=== PATIENT | female | born 1965 | race Caucasian/White ===

== ENCOUNTER 2019-04-06 17:08 | Inpatient (IN) ==
[2019-04-06 17:41] LABS: URINE SOURCE CLEAN CATCH
[2019-04-06 17:46] LABS: BILIRUBIN URINE NEGATIVE (NEGATIVE); BLOOD URINE TRACE (NEGATIVE); COLOR YELLOW; GLUCOSE URINE NEGATIVE (NEGATIVE); KETONE URINE 100 mg/dL (NEGATIVE); LEUKOCYTES URINE SMALL (NEGATIVE); NITRITE URINE NEGATIVE (NEGATIVE); PROTEIN URINE TRACE mg/dL (NEGATIVE); SP GRAVITY URINE 1.022; TURBIDITY URINE CLEAR (CLEAR); UROBILINOGEN URINE NORMAL (NORMAL)
[2019-04-06 17:47] LABS: BASO# 0.03 X1000 (0.0-0.2); BASO% 0.1 % (0.0-0.8); EOS# 0.02 X1000 (0.0-0.7); EOS% 0.1 % (0.0-10.0); HEMATOCRIT 42.9 % (37.0-47.0); HEMOGLOBIN 14.3 g/dL (12.0-16.0); IMM GRAN# 0.08 X1000 (0.0-0.04); IMM GRAN% 0.3 % (0.0-0.5); LYMPH# 1.38 X1000 (1.2-3.4); LYMPH% 5.9 % (20.5-51.1); MCH 29.1 PG (27-31); MCHC 33.3 g/dL (33-37); MCV 87.4 FL (81-99); MONO# 1.47 X1000 (0.11-0.59); MONO% 6.3 % (1.7-9.3); MPV 10.2 FL (7.4-10.4); NEUT# 20.36 X1000 (1.4-6.5); NEUT% 87.3 % (42.2-75.2); PLT 284 X1000 (130-400); RBC 4.91 XMIL (4.2-5.4); RDW 12.6 % (11.5-14.5); UR EPITHELIAL CELLS <10 /HPF (<10); URINE BACTERIA NEGATIVE /HPF; URINE RBC <10 /HPF (<10); WBC 23.34 X1000 (4.8-10.8)
[2019-04-06 17:57] LABS: URINE CRYSTALS NONE SEEN
[2019-04-06 18:03] LABS: AGAP 17; ALBUMIN 4.8 g/dL (3.5-5.0); ALKALINE PHOSPHATASE 64 U/L (32-104); AMYLASE 37 U/L (20-200); BUN 9 mg/dL (8-22); CHLORIDE 97 mmol/L (98-107); COSMO 270; CREATININE 0.7 mg/dL (0.5-0.9); ESTIMATED GFR > 60; GLUCOSE 117 mg/dL (70-104); GOT 20 U/L (10-30); GPT 26 U/L (10-36); LIPASE 14 U/L (13-60); POTASSIUM 3.8 mmol/L (3.5-5.1); SODIUM 135 mmol/L (136-145); TCO2 21 mmol/L (25-35); TOTAL BILIRUBIN 1.05 mg/dL (0.20-1.00); TOTAL PROTEIN 7.2 g/dL (6.3-8.3)
[2019-04-06] MEDS ORDERED: NS 1,000 ML IV ONE (19:26)
[2019-04-06] MEDS ORDERED: ZOFRAN IV ONE (19:26)
--- NOTE | 2019-04-06 19:28 | PROVIDER DOCUMENTATION ---
HPI-Abdominal Pain/GI Problem - General Chief Complaint: SEPSIS ALERT - D Stated Complaint: STOMACH PAIN Time Seen by Provider: 04/06/19 19:15 Source: patient Allergies/Adverse Reactions: Patient Allergies Allergy/AdvReac Type Severity Reaction Status Date / Time miconazole nitrate * Allergy ITCHING Verified 04/06/19 19:44 [From Monistat 3] acetaminophen AdvReac DIZZINESS Verified 04/06/19 19:44 [From Tylenol-Codeine #3] codeine phosphate * AdvReac DIZZINESS Verified 04/06/19 19:44 [From Tylenol-Codeine #3] Home Medications: Home Medication List Medication Instructions Recorded Confirmed Last Taken Type Aspirin 81 mg PO DAILY 04/14/16 04/06/19 04/17/18 History Pantoprazole [Protonix] 40 mg PO DAILY@0700 #30 tablet 04/20/16 04/06/19 04/17/18 Rx Calcium Carb, Citrate/Vit D3 1 each PO ORDERED 04/18/18 04/06/19 04/17/18 History [Calcium + D3 ER Tablet] Gabapentin 300 mg PO TID 04/18/18 04/06/19 04/17/18 History Lisinopril 5 mg PO DAILY 04/18/18 04/06/19 04/17/18 History Metformin [Glucophage] 500 mg PO BID CC 04/18/18 04/06/19 04/17/18 History Albuterol Sulfate 2.5 mg INH PRN PRN 04/06/19 04/06/19 Unknown History Ascorbate Calcium [Vitamin C] 500 mg PO DAILY 04/06/19 04/06/19 Unknown History Budesonide 0.5 mg INH DAILY 04/06/19 04/06/19 Unknown History LOVAstatin [Mevacor] 20 mg PO QPM 04/06/19 04/06/19 Unknown History Lactobacillus Rhamnosus GG 1 cap PO DAILY 04/06/19 04/06/19 Unknown History [Probiotic] Methocarbamol 750 mg PO DAILY 04/06/19 04/06/19 Unknown History Montelukast [Singulair] 10 mg PO QPM 04/06/19 04/06/19 Unknown History Mv-Min/Iron/Folic/Calcium/Vitk 1 tab PO DAILY 04/06/19 04/06/19 Unknown History [Women's Multivitamin Tablet] [place]-3 Fatty Acids/Fish Oil [Fish 1,000 mg PO DAILY 04/06/19 04/06/19 Unknown History Oil 1,000 mg Capsule] Polyethylene Glycol 3350 [Miralax] 1 packet PO DAILY 04/06/19 04/06/19 Unknown History Psyllium Husk [Metamucil] 1 cap PO QPM 04/06/19 04/06/19 Unknown History - History of Present Illness-ABD Nature of Presenting Problems: 53 yr old F, hx of diverticulitis and colitis, presents with a three day hx of generalized abdominal pain, nausea, poor appetite and subjective fevers and chills. Pt has had similar symptoms in the past. She denies any changes with her bowel habits, noting that she "went well yesterday".The pt apparently has been diagnosed with diverticulitis in the past, so this occurs fairly frequently. Review of Systems - Adult - REVIEW OF SYSTEMS - ADULT Constitutional: reports: chills, fever Eyes: reports: no symptoms reported Ears, Nose, Mouth & Throat: reports: no symptoms reported Cardiovascular: reports: no symptoms reported Respiratory: reports: no symptoms reported Gastrointestinal: reports: abdominal pain, nausea, poor appetite Genitourinary: reports: no symptoms reported Musculoskeletal: reports: no symptoms reported Integumentary: reports: no symptoms reported Neurological: reports: no symptoms reported Psychiatric: reports: no symptoms reported Past History - Adult - PAST MEDICAL HISTORY-ADULT Review of Records: reports: Nursing Assessment Review Major Childhood Illnesses: reports: denies history Cardiovascular: reports: denies history Respiratory: reports: denies history Gastrointestinal: reports: diverticulosis, other (diverticulitis) Obstetrical/Gynecological: reports: denies history Genitourinary: reports: denies history Musculoskeletal: reports: denies history Neurological: reports: denies history Endocrine/Immune: reports: denies history Other Conditions: reports: denies history - PRIOR SURGERIES/PROCEDURES Surgical/Procedure History: reports: BTL, , tonsillectomy - IMMUNIZATION STATUS Childhood Immunizations: UTD Flu Vaccine: UTD - FAMILY HISTORY Family History: reviewed, not pertinent Physical Exam-General - PHYSICAL EXAM-ADULT Initial Vital Signs Reviewed: Yes - CONSTITUTIONAL General Appearance: alert, mild distress - EYES Eyes: PERRL/EOMI - HEAD, EARS, NOSE, MOUTH & THROAT HENMT: normocephalic/atraumatic, moist mucous membranes - RESPIRATORY Respiratory: lungs clear, normal breath sounds - CARDIOVASCULAR Cardiovascular: regular rate, rhythm (two hrs after initial vitals) - GASTROINTESTINAL (ABDOMEN) Abdominal Exam: normal bowel sounds, soft, tenderness (epigastric and RUQ, though pt is uncomfortable with generalized palpation) - SKIN Integumentary: warm/dry - NEUROLOGIC Neurologic: grossly normal, no motor/sensory deficits - PSYCHIATRIC Psych/Mental Status: normal mood/affect, oriented x 3 Progress - PLAN OF CARE/RESULTS Progress/Plan/Lab Results: Vital Signs - 8 hr 04/06/19 17:13 Temperature 97.9 F Pulse Rate 112 H Respiratory Rate 20 Blood Pressure 112/75 O2 Sat by Pulse Oximetry 95 Laboratory Results - last 24 hr 04/06/19 04/06/19 04/06/19 17:24 17:24 17:24 WBC 23.34 H RBC 4.91 Hgb 14.3 Hct 42.9 MCV 87.4 MCH 29.1 MCHC 33.3 RDW Std Deviation 12.6 Plt Count 284 MPV 10.2 Immature Gran % (Auto) 0.3 Neut % (Auto) 87.3 H Lymph % (Auto) 5.9 L [place] % (Auto) 6.3 Eos % (Auto) 0.1 Baso % (Auto) 0.1 Immature Gran # (Auto) 0.08 H Neut # (Auto) 20.36 H Lymph # (Auto) 1.38 [place] # (Auto) 1.47 H Eos # (Auto) 0.02 Baso # (Auto) 0.03 Sodium 135 L Potassium 3.8 Chloride 97 L Carbon Dioxide 21 L Anion Gap 17 BUN 9 Creatinine 0.7 Estimated GFR/1.73 m2 > 60 BUN/Creatinine Ratio 13 Glucose 117 H Calculated Osmolality 270 Calcium 10.0 Total Bilirubin 1.05 H AST 20 ALT 26 Alkaline Phosphatase 64 Total Protein 7.2 Albumin 4.8 Globulin 2.4 Albumin/Globulin Ratio 2.0 Amylase 37 Lipase 14 Urine Source CLEAN CATCH Urine Color YELLOW Urine Turbidity CLEAR Urine pH 6.0 Ur Specific [place] 1.022 Urine Protein TRACE A Ur Glucose (Stick) NEGATIVE Ur Ketones (Stick) 100 A Urine Blood TRACE A Urine Nitrite NEGATIVE Urine Bilirubin NEGATIVE Urobilinogen Dipstick NORMAL Urine Leukocytes SMALL A Urine WBC (Auto) 10-20 A Urine RBC (Auto) <10 U Epithel Cells (Auto) <10 Urine Bacteria (Auto) NEGATIVE Urine Crystals NONE SEEN Small Round Cells Not Reportable Urine Casts Not Reportable Urine Yeast-like Cells Not Reportable Orders Category Date Time Status Cardiac Monitoring DIRECTED Care 04/06/19 19:17 Active IV Insertion ORDERED Care 04/06/19 19:17 Active Notify MD of + Sepsis Screen NOW Care 04/06/19 19:17 Active Notify Physician As Ordered Care 04/06/19 19:17 Active Saline Loc DIRECTED Care 04/06/19 17:22 Active NPO Diet 04/06/19 17:22 Active CHEST-1 VIEW [RAD] Stat Exams 04/06/19 19:[address] ABDOMEN/PELVIS W/O CONTRAST [CT] Stat Exams 04/06/19 19:22 Ordered AMYLASE [CHEM] Stat Lab 04/06/19 17:24 Completed BLOOD CULTURE [BLDCUL] Stat Lab 04/06/19 19:17 Uncollected CBC WITH DIFF [HEME] Stat Lab 04/06/19 19:17 Uncollected CBC WITH ELECTRONIC DIFF [HEME] Stat Lab 04/06/19 17:24 Completed CK PROFILE [SP CHEM] Stat Lab 04/06/19 19:17 Uncollected COMPREHENSIVE METABOLIC PANEL [CHEM] Stat Lab 04/06/19 17:24 Completed COMPREHENSIVE METABOLIC PANEL [CHEM] Stat Lab 04/06/19 19:17 Uncollected LACTATE, PLASMA [CHEM] Q3H Lab 04/06/19 19:30 Uncollected LACTATE, PLASMA [CHEM] Q3H Lab 04/06/19 22:30 Uncollected LACTATE, PLASMA [CHEM] Q3H Lab 04/07/19 01:30 Uncollected LIPASE [CHEM] Stat Lab 04/06/19 17:24 Completed PROTIME WITH INR [COAG] Stat Lab 04/06/19 19:17 Uncollected PTT [COAG] Stat Lab 04/06/19 19:17 Uncollected TROPONIN T Stat Lab 04/06/19 19:17 Uncollected URINALYSIS W/POSS RFLX CULT [URINALYSIS] Stat Lab 04/06/19 17:24 Completed URINALYSIS W/POSS RFLX CULT [URINALYSIS] Stat Lab 04/06/19 19:17 Uncollected URINE CULTURE [RM] Routine Lab 04/06/19 17:58 Received URINE MANUAL MICROSCOPIC [URINALYSIS] Stat Lab 04/06/19 17:24 Completed Oxygen Device Stat Oth 04/06/19 19:17 Active Spoke with hospitalist, who agrees to admit, given CT findings and elevated WBC. Pt made aware of plan. Result Diagrams: 04/06/19 17:24 04/06/19 17:24 - CT/MRI 1 CT Study: Abdomen, Pelvis Impression: See EMR Report CT Results: diverticulitis - CONSULTS/PCP/HOSPITALIST Notification #1 *Consult/PCP/Hospitalist*: Dr. Duron Time Discussed: 20:28 Consult Disposition: Admit Departure - Departure Date of Disposition Decision: 04/06/19 Time of Disposition Decision: 20:33 DIAGNOSIS: Acute diverticulitis Disposition: ADMITTED INPATIENT 09 Certified Medical Emergency: Emergent Condition: Fair Referrals and Follow-Ups: Meghan Buckner CRNP [Primary Care Provider] - - Critical Care Note This patient required my direct & personal management of CC.: No Attestation - Physician/ MARTIN Attestation Patient care was provided by Advanced Practice Provider:: No The physician spent face to face time with patient:: Yes Advanced Practice Provider documentation review:: Supervising physician onsite and consulted in the evaluation and care of this patient. The physician did have a face to face encounter with the patient.
--- NOTE | 2019-04-06 19:43 | Diag Imaging Result Doc PS360 ---
CHEST-1 VIEW - 04/06/2019 INDICATION: sepsis alert COMPARISON: 09/18/2018 FINDINGS: The lungs are normally expanded and clear. Heart size and mediastinal contours are normal. No pneumothorax or pleural effusion. IMPRESSION: Negative exam. Electronically signed by Yang Tolentino 04/06/2019 7:42 PM
--- NOTE | 2019-04-06 20:06 | Diag Imaging Result Doc PS360 ---
CT ABDOMEN/PELVIS W/O CONTRAST - 04/06/2019 INDICATION: Abdominal Pain COMPARISON: 04/17/2018 FINDINGS: The lung bases are clear and the heart size is normal. There is significant diffuse fatty change of the liver. Otherwise abdominal organs are all normal. There is significant wall thickening with surrounding inflammatory edema affecting the sigmoid colon. There are numerous sigmoid diverticula. No free air. No drainable fluid collections. Normal appendix. Urinary bladder, uterus, and rectum are normal. There are moderate degenerative changes of the spine. No acute or suspicious bony lesion. IMPRESSION: 1. Diverticulitis of the sigmoid colon. No free air or abscess. 2. Severe fatty change of the liver. This exam was performed using automated exposure control, adjustment of mA or kV according to patient size, and/or use of iterative reconstruction technique Electronically signed by Yang Tolentino 04/06/2019 8:05 PM
[2019-04-06] MEDS: FLAGYL 500 MG/NS 500 MG/100 ML IVPB IV SCH (21:26)
[2019-04-06] MEDS ORDERED: TYLENOL PO PRN (21:37)
[2019-04-06] MEDS ORDERED: NS 1,000 ML IV SCH (21:45)
[2019-04-06] MEDS: HUMALOG SUBQ SCH (21:45)
[2019-04-06] MEDS: LEVAQUIN 500 MG/D5W 500 MG/100 ML IVPB IV SCH (22:36)
[2019-04-06] MEDS: MORPHINE IV PRN (22:37)
--- NOTE | 2019-04-06 22:58 | HISTORY AND PHYSICAL ---
CHIEF COMPLAINT: Nausea, abdominal pain of 3 days duration. HISTORY OF PRESENT ILLNESS: Ms. Cano is a 53-year-old lady with past medical history of diverticulitis, noninsulin-dependent diabetes mellitus, essential hypertension, who came in with chief complaint of lower abdominal pain of about 3 days duration, which did not get better. The patient also had experienced associated nausea with it. She previously has had episodes of diverticulitis, and her symptoms appeared as if she was developing another episode of diverticulitis so she decided to come to the emergency room. In the emergency room she was found to have leukocytosis, tachycardia, and CT scan evidence of acute sigmoid diverticulitis. She was started on intravenous fluids, and hospitalist team was consulted for further management considering suspected sepsis. At the time of my evaluation, she is sleeping in the bed, not in acute distress. She complains of significant tenderness in the lower quadrant of the abdomen bilaterally. She he is also complaining of nausea but has not had any vomiting. She has been passing gas. Her last bowel movement was yesterday, which was soft. She also consumed her last meal yesterday morning time. She did not notice any blood in her bowel movement yesterday. She normally goes and sees Dr. Miller whom she saw last year. She denies eating any nuts or cones. REVIEW OF SYSTEMS: Positive for abdominal pain. Negative for fever or chills. Negative for vomiting. Positive for nausea. Negative for headache. Negative for chest pain or shortness of breath. PAST MEDICAL HISTORY: 1. Episode of venous thromboembolism in 2015. 2. History of diverticulitis in 2018. 3. History of noninsulin dependent diabetes mellitus. 4. History of essential hypertension. 5. Hyperlipidemia. PAST SURGICAL HISTORY: 1. Had vocal cord surgery. 2. Left ankle surgery following trauma. 3. section twice. 4. Tonsillectomy. FAMILY HISTORY: 1. Cancer of mouth in her dad. 2. Heart disease and diabetes in first-degree relatives. SOCIAL HISTORY: Lives alone. Does not smoke, drink, or use any drugs. CURRENT MEDICATION LIST: She is listed to be taking aspirin 81 mg daily, pantoprazole 40 mg daily, calcium/vitamin D3 one tablet daily, gabapentin 300 mg t.i.d. for peripheral neuropathy, lisinopril 5 mg daily, metformin 500 mg b.i.d. with meals, budesonide 0.5 mg inhaled daily, lactobacillus 1 capsule daily, Lovastatin 20 mg at nighttime, methocarbamol and 750 mg daily, Women's multivitamin tablet 1 tablet daily, [place]-3 fatty acids 1000 mg daily, MiraLAX 17 g daily, psyllium husk 1 capsule at nighttime, albuterol 2.5 mg inhaled as needed for shortness of breath, ascorbic acid 500 mg daily, montelukast 10 mg at nighttime. MEDICATION ALLERGIES: Miconazole, acetaminophen, codeine. PHYSICAL EXAMINATION: VITAL SIGNS: Temperature of 97.9 degrees, pulse 97, respiratory 18, blood pressure 120/70, saturating 98% room air. GENERAL: Does not appear in acute distress. HEENT: Oral cavity is moist. RESPIRATORY: Air entry bilaterally equal. No wheeze, rhonchi or crackles. CARDIOVASCULAR: S1, S2 normal. No murmur or gallop. ABDOMEN: Soft. Tenderness in hypogastric and right and left lower quadrant region. No rebound or rigidity. Hypoactive bowel sounds. EXTREMITIES: No lower extremity edema. NEUROLOGICAL: She is alert and oriented x3. She is able to sit up in the bed without anyone's help. She is moving all extremities spontaneously. IMAGING: Chest x-ray on admission did not have an acute cardiopulmonary process. Abdomen-pelvis CT had diverticulitis of the sigmoid colon without any free air or abscess and severe fatty change of the liver. ASSESSMENT AND PLAN: 1. Sepsis due to acute sigmoid diverticulitis with prior history of diverticulitis. 2. Diverticulosis of intestine. 3. Fatty liver. 4. History of [id number] diabetes mellitus. 5. Essential hypertension. 6. History of peripheral neuropathy. PLAN: I will resuscitate the patient with intravenous fluids, start her on intravenous antibiotics and keep her n.p.o. I will also follow up with blood culture results. She was counseled about avoiding nuts, corn, and constipation. I will resume all other home medications including gabapentin, lisinopril, lovastatin. I will keep her on intravenous morphine as needed for abdominal pain and follow up with electrolytes for monitoring of her hyponatremia and hypochloremia, which could be due to poor oral intake since last 48 hours. I will admit the patient to medical floor under telemetry unit for sepsis. Plan of care discussed with the patient and her family at bedside. Their questions have been answered. cc: Calin Duron MD
[2019-04-07] MEDS: MORPHINE IV PRN ×5 (04:24→23:03)
[2019-04-07] MEDS: HUMALOG SUBQ SCH ×4 (04:42→22:12)
[2019-04-07] MEDS: FLAGYL 500 MG/NS 500 MG/100 ML IVPB IV SCH ×3 (05:04→21:10)
[2019-04-07 05:11] LABS: BASO# 0.02 X1000 (0.0-0.2); BASO% 0.1 % (0.0-0.8); EOS# 0.14 X1000 (0.0-0.7); EOS% 0.9 % (0.0-10.0); HEMOGLOBIN 12.3 g/dL (12.0-16.0); IMM GRAN# 0.05 X1000 (0.0-0.04); IMM GRAN% 0.3 % (0.0-0.5); LYMPH# 1.42 X1000 (1.2-3.4); LYMPH% 9.2 % (20.5-51.1); MCH 29.7 PG (27-31); MCHC 33.2 g/dL (33-37); MCV 89.4 FL (81-99); MONO# 1.22 X1000 (0.11-0.59); MONO% 7.9 % (1.7-9.3); MPV 10.1 FL (7.4-10.4); NEUT# 12.56 X1000 (1.4-6.5); NEUT% 81.6 % (42.2-75.2); PLT 228 X1000 (130-400); RBC 4.14 XMIL (4.2-5.4); RDW 12.7 % (11.5-14.5); WBC 15.41 X1000 (4.8-10.8)
[2019-04-07 05:51] LABS: AGAP 14; BUN 7 mg/dL (8-22); CHLORIDE 104 mmol/L (98-107); COSMO 276; CREATININE 0.7 mg/dL (0.5-0.9); ESTIMATED GFR > 60; GLUCOSE 109 mg/dL (70-104); POTASSIUM 3.5 mmol/L (3.5-5.1); SODIUM 139 mmol/L (136-145); TCO2 21 mmol/L (25-35)
[2019-04-07] MEDS: PROTONIX PO SCH (06:22)
[2019-04-07] MEDS: PULMICORT INH SCH (08:31)
[2019-04-07] MEDS: VITAMIN C PO SCH (09:06)
[2019-04-07] MEDS: FISH OIL CONCENTRATE PO SCH (09:06)
[2019-04-07] MEDS: ROBAXIN PO SCH (09:06)
[2019-04-07] MEDS: PRINIVIL PO SCH (09:07)
[2019-04-07] MEDS: ASPIRIN PO SCH (09:07)
[2019-04-07] MEDS: MIRALAX PO SCH (09:07)
[2019-04-07] MEDS: LOVENOX SUBQ SCH (09:07)
[2019-04-07] MEDS: NEURONTIN PO SCH ×3 (09:07→21:10)
[2019-04-07] MEDS: THERA M PLUS PO SCH (09:10)
--- NOTE | 2019-04-07 14:11 | PROGRESS NOTE ---
DATE: 04/07/2019 SUBJECTIVE: The patient seems to be feeling a little bit better compared with yesterday but she is still complaining of abdominal pain. No fever, no chills for now, I will continue with same management. OBJECTIVE: Vital Signs: Temperature 98.1 degrees, pulse 85, respiratory rate 17, blood pressure 106/51, oxygen saturation 96 on room air. HEENT: Head normocephalic. No trauma. PERRLA. Neck: Supple. No JVD. No masses. Central trachea. Chest: Clear to auscultation. No wheezing. No rales. Abdomen: Soft. Tenderness to palpation mostly at the level of the lower abdomen. No signs of peritoneal irritation and no rebound. Extremities: No edema, no clubbing, no cyanosis. Neurological: The patient is alert, she is oriented x3. No focal deficit. LABORATORY: WBC 15.4, hemoglobin 12.3, hematocrit 37, platelets 288,000. Sodium 139, potassium 3.5, chloride 104, bicarbonate 21, BUN 7, creatinine 0.7, glucose 109, calcium 9. ASSESSMENT AND PLAN: 1. Sepsis due to sigmoid diverticulitis with prior history of diverticulitis as well, continue with antibiotics. She has been placed on levofloxacin and metronidazole, continue with IV fluids. 2. History of diverticulosis. Aware. 3. Fatty liver. Will continue to monitor. 4. History of diabetes, she seems to be stable. Continue with same management for now. 5. He hypertension. Actually her blood pressure has been in the lower side. At home she takes a low dose of lisinopril which we will continue is only 5 mg. 6. History of peripheral neuropathy aware. She is not complaining of neuropathy at this moment. cc: Andrew Deshpande MD
[2019-04-07] MEDS: SINGULAIR PO SCH (21:10)
[2019-04-07] MEDS: MEVACOR PO SCH (21:56)
[2019-04-07] MEDS: LEVAQUIN 500 MG/D5W 500 MG/100 ML IVPB IV SCH (23:03)
[2019-04-08] MEDS: MORPHINE IV PRN ×3 (06:14→21:29)
[2019-04-08] MEDS: FLAGYL 500 MG/NS 500 MG/100 ML IVPB IV SCH ×3 (06:15→21:30)
[2019-04-08] MEDS: HUMALOG SUBQ SCH ×4 (06:15→22:42)
[2019-04-08] MEDS: PROTONIX PO SCH (06:15)
[2019-04-08] MEDS: PULMICORT INH SCH (07:53)
[2019-04-08] MEDS: ROBAXIN PO SCH (10:21)
[2019-04-08] MEDS: MIRALAX PO SCH (10:21)
[2019-04-08] MEDS: ASPIRIN PO SCH (10:22)
[2019-04-08] MEDS: NEURONTIN PO SCH ×3 (10:22→21:30)
[2019-04-08] MEDS: VITAMIN C PO SCH (10:22)
[2019-04-08] MEDS: FISH OIL CONCENTRATE PO SCH (10:22)
[2019-04-08] MEDS: LOVENOX SUBQ SCH (10:22)
[2019-04-08] MEDS: PRINIVIL PO SCH (10:22)
[2019-04-08] MEDS: THERA M PLUS PO SCH (10:22)
[2019-04-08 10:46] LABS: AGAP 12; BUN 6 mg/dL (8-22); CALCIUM 9.1 mg/dL (8.8-10.2); CHLORIDE 103 mmol/L (98-107); COSMO 275; CREATININE 0.6 mg/dL (0.5-0.9); ESTIMATED GFR > 60; GLUCOSE 103 mg/dL (70-104); POTASSIUM 3.9 mmol/L (3.5-5.1); SODIUM 139 mmol/L (136-145); TCO2 24 mmol/L (25-35)
[2019-04-08 10:51] LABS: BASO# 0.03 X1000 (0.0-0.2); BASO% 0.3 % (0.0-0.8); EOS# 0.69 X1000 (0.0-0.7); EOS% 7.7 % (0.0-10.0); HEMATOCRIT 39.4 % (37.0-47.0); HEMOGLOBIN 12.8 g/dL (12.0-16.0); IMM GRAN# 0.02 X1000 (0.0-0.04); IMM GRAN% 0.2 % (0.0-0.5); LYMPH# 1.16 X1000 (1.2-3.4); MCH 29.1 PG (27-31); MCHC 32.5 g/dL (33-37); MCV 89.5 FL (81-99); MONO# 0.72 X1000 (0.11-0.59); MONO% 8.1 % (1.7-9.3); MPV 10.1 FL (7.4-10.4); NEUT# 6.32 X1000 (1.4-6.5); NEUT% 70.7 % (42.2-75.2); PLT 267 X1000 (130-400); RDW 12.5 % (11.5-14.5); WBC 8.94 X1000 (4.8-10.8)
--- NOTE | 2019-04-08 14:16 | PROGRESS NOTE ---
DATE: 04/08/2019 SUBJECTIVE: The patient seems to be doing better, her white blood cell count normalized. She is still complaining of pain. I will advance her diet from liquid diet to a full liquid diet. No bowel movement so far, stable vital signs. Continue with same management. OBJECTIVE: Vital Signs: Temperature 97.8 degrees, pulse 64, respiratory rate 21, blood pressure 107/58, oxygen saturation 95% on room air. HEENT: Head normocephalic, no trauma, PERRLA. Neck: Supple. No JVD. No masses. Central trachea. Chest: Clear to auscultation. No wheezing. No rales. Abdomen: Soft. Generalized tenderness to palpation was mostly at the level of the lower abdomen. No signs of peritoneal irritation and no rebound. Neurological: The patient is alert, she is oriented x3. No focal deficits. LABORATORY: WBC 8.9, hemoglobin 12.8, hematocrit 39.4, platelets 267,000, sodium 139, potassium 3.9, chloride 103, bicarbonate 24, BUN 6, creatinine 0.6, glucose 103, calcium 9.1. ASSESSMENT AND PLAN: 1. Sepsis due to sigmoid diverticulitis with prior history of diverticulitis as well, continue with antibiotics. She has been placed on levofloxacin and metronidazole. I believe it is working fine. Continue with IV fluids. 2. History of diverticulosis, aware. 3. Fatty liver. Continue to monitor. 4. History of diabetes, stable. 5. Hypertension, actually blood pressure has been in the lower side. At home, she takes a low dose of lisinopril which I will continue. It is only 5 mg. 6. History of peripheral neuropathy. Aware. She is not complaining of neuropathy at this moment. 7. Overall this patient is doing better, I advanced her diet today from clear liquid diet to full liquid diet. I believe she can be discharged in the next 24 to 48 hours, no bowel movement so far. She is still in pain. cc: Andrew Deshpande MD
[2019-04-08] MEDS: MEVACOR PO SCH (21:30)
[2019-04-08] MEDS: SINGULAIR PO SCH (21:30)
[2019-04-08] MEDS: LEVAQUIN 500 MG/D5W 500 MG/100 ML IVPB IV SCH (22:42)
[2019-04-09] MEDS: HUMALOG SUBQ SCH ×3 (05:27→15:53)
[2019-04-09] MEDS: PROTONIX PO SCH ×2 (05:27→07:28)
[2019-04-09] MEDS: FLAGYL 500 MG/NS 500 MG/100 ML IVPB IV SCH ×3 (05:27→21:02)
[2019-04-09 06:57] LABS: BASO# 0.04 X1000 (0.0-0.2); BASO% 0.5 % (0.0-0.8); EOS# 0.88 X1000 (0.0-0.7); EOS% 12.1 % (0.0-10.0); HEMATOCRIT 39.9 % (37.0-47.0); HEMOGLOBIN 13.1 g/dL (12.0-16.0); IMM GRAN# 0.03 X1000 (0.0-0.04); IMM GRAN% 0.4 % (0.0-0.5); LYMPH# 1.32 X1000 (1.2-3.4); LYMPH% 18.1 % (20.5-51.1); MCH 29.3 PG (27-31); MCHC 32.8 g/dL (33-37); MCV 89.3 FL (81-99); MONO# 0.65 X1000 (0.11-0.59); MONO% 8.9 % (1.7-9.3); NEUT# 4.37 X1000 (1.4-6.5); PLT 291 X1000 (130-400); RBC 4.47 XMIL (4.2-5.4); RDW 12.4 % (11.5-14.5); WBC 7.29 X1000 (4.8-10.8)
[2019-04-09 07:23] LABS: AGAP 13; BUN 7 mg/dL (8-22); CALCIUM 9.4 mg/dL (8.8-10.2); CHLORIDE 106 mmol/L (98-107); COSMO 279; CREATININE 0.7 mg/dL (0.5-0.9); ESTIMATED GFR > 60; GLUCOSE 94 mg/dL (70-104); SODIUM 141 mmol/L (136-145); TCO2 22 mmol/L (25-35)
[2019-04-09] MEDS: PULMICORT INH SCH (08:18)
[2019-04-09] MEDS: ALBUTEROL NEB INH PRN (08:19)
[2019-04-09] MEDS: PRINIVIL PO SCH (08:46)
[2019-04-09] MEDS: ASPIRIN PO SCH (08:47)
[2019-04-09] MEDS: THERA M PLUS PO SCH (08:47)
[2019-04-09] MEDS: NEURONTIN PO SCH ×3 (08:47→21:02)
[2019-04-09] MEDS: ROBAXIN PO SCH (08:47)
[2019-04-09] MEDS: FISH OIL CONCENTRATE PO SCH (08:47)
[2019-04-09] MEDS: VITAMIN C PO SCH (08:47)
[2019-04-09] MEDS: MIRALAX PO SCH (08:47)
[2019-04-09] MEDS: LOVENOX SUBQ SCH ×2 (08:48→09:37)
[2019-04-09] MEDS: CITRACAL + D PO SCH (08:53)
[2019-04-09] MEDS: MEVACOR PO SCH (21:02)
[2019-04-09] MEDS: SINGULAIR PO SCH (21:02)
[2019-04-09] MEDS: LEVAQUIN 500 MG/D5W 500 MG/100 ML IVPB IV SCH (22:21)
--- NOTE | 2019-04-09 22:55 | PROGRESS NOTE ---
DATE: 04/09/2019 INTERVAL HISTORY: No acute events overnight. SUBJECTIVE: She is feeling fine. She was a little nauseous today, but has not had any vomiting. Her abdominal pain is better, though it is still sore. She wants me to advance her diet. We discussed about continuing oral antibiotics after discharge. VITAL SIGNS: Temperature 97.7 degrees, pulse 73, respiratory 18, blood pressure 120/70, saturating 96% on room air. PHYSICAL EXAMINATION: General: Does not appear in any acute distress. Oral cavity is moist. Lungs: Air entry bilaterally equal. No wheeze, rhonchi, or crackles. Cardiovascular: S1, S2 normal. No murmur, rub or gallop. Abdomen: Soft. Mild tenderness in hypogastric region. No rebound or rigidity. It is significantly better than on admission. Hypoactive bowel sounds. She has had multiple bowel movements. Extremity: No lower extremity edema. Neurologic: She is alert and oriented x3. LABS: Suggestive of resolution of leukocytosis. Normal hemoglobin, normal electrolytes. Microbiology blood culture did not have any growth. No new imaging. ASSESSMENT AND PLAN: 1. Sepsis due to acute sigmoid diverticulitis with prior history of diverticulitis. Continue levofloxacin and metronidazole. Day 1 of antibiotic was April 06. My plan is to treat her for at least 10 days of antibiotic. She should get outpatient followup with Dr. Miller. 2. Others. She does have history of diverticulosis, fatty liver, [id number]-uelltjelq diabetes mellitus, essential hypertension, and peripheral neuropathy. These are stable. I am continuing her home medications of aspirin, ascorbic acid, calcium multivitamin, gabapentin, lisinopril, lovastatin, methocarbamol and montelukast. DISPOSITION: My plan is to advance her diet to gastrointestinal soft and if she continues to do better, the plan is to discharge her home tomorrow. cc: Calin Duron MD
[2019-04-10] MEDS: HUMALOG SUBQ SCH ×2 (03:56→03:57)
[2019-04-10] MEDS: FLAGYL 500 MG/NS 500 MG/100 ML IVPB IV SCH (06:33)
[2019-04-10] MEDS: PROTONIX PO SCH (06:33)
[2019-04-10] MEDS: PULMICORT INH SCH (08:18)
[2019-04-10] MEDS: ALBUTEROL NEB INH PRN (08:18)
[2019-04-10] MEDS: FISH OIL CONCENTRATE PO SCH (08:53)
[2019-04-10] MEDS: ROBAXIN PO SCH (08:53)
[2019-04-10] MEDS: ASPIRIN PO SCH (08:54)
[2019-04-10] MEDS: PRINIVIL PO SCH (08:54)
[2019-04-10] MEDS: THERA M PLUS PO SCH (08:54)
[2019-04-10] MEDS: VITAMIN C PO SCH (08:54)
[2019-04-10] MEDS: NEURONTIN PO SCH (08:54)
[2019-04-10] MEDS: LOVENOX SUBQ SCH (09:01)
[2019-04-10] MEDS: CITRACAL + D PO SCH (09:01)
[2019-04-10 11:43] VITALS: BP 120/73
--- NOTE | 2019-04-10 20:38 | DISCHARGE SUMMARY ---
ADMISSION DATE: 04/06/2019 DISCHARGE DATE: 04/10/2019 DISCHARGE DISPOSITION: Home. DISCHARGE CONDITION: Hemodynamically stable. She is alert and oriented x3. She has been tolerating a GI soft diet without any nausea or vomiting. Her abdominal pain has significantly improved since presentation. She only has mild soreness in the lower abdomen. She does not have any constipation. Has had multiple bowel movements. DISCHARGE INSTRUCTIONS AND FOLLOWUP: She was advised to complete the antibiotic course. She was also advised to have a followup with Dr. Miller in his office. DISCHARGE DIAGNOSES: 1. Acute sigmoid diverticulitis. 2. Sepsis due to acute diverticulitis. OTHER DIAGNOSES: 1. History of diverticulosis. 2. History of fatty liver. 3. Non insulin-dependent diabetes mellitus. 4. Essential hypertension. 5. Peripheral neuropathy. 6. History of venous thromboembolism in 2014. 7. History of diverticulitis in 2018. 8. Hyperlipidemia. DISCHARGE MEDICATIONS: 1. Albuterol sulfate inhalation 2.5 mg as needed for shortness of breath. 2. Aspirin 81 mg daily 3. Budesonide 0.5 mg inhaled daily. 4. Calcium/vitamin D 1 tablet daily. 5. Tionesta-3 fatty acids (fish oil) 1000 mg daily. 6. Gabapentin 300 mg t.i.d. 7. Metformin 500 mg b.i.d. with meals. 8. Lisinopril 5 mg daily. 9. Psyllium husk, 1 capsule in the evening time. 10.Methocarbamol 750 mg daily. 11.Lovastatin 20 mg at nighttime. 12.Polyethylene glycol 17 grams daily. 13.Probiotic 1 capsule daily. 14.Singulair 10 mg in the evening. 15.Vitamin C 500 mg daily. 16.Women's multivitamin tablet 1 tablet daily. 17.Metronidazole 500 mg t.i.d. with 18 tablets prescribed. 18.Levofloxacin 500 mg daily with 6 tablets prescribed. 19.Pantoprazole 40 mg daily. PHYSICAL EXAMINATION AT DISCHARGE: VITAL SIGNS: Temperature 98.4, pulse 85, respiratory rate 20, blood pressure 120/73, saturating 95% on room air. GENERAL: Does not appear in any acute distress. Oral cavity is moist. LUNGS: Air entry bilaterally equal. No wheezing or crackles. CARDIOVASCULAR: S1 and S2 are normal. No murmur, rub or gallop. ABDOMEN: Soft, nontender. Mild soreness in hypogastric region. No rebound or rigidity. Active bowel sounds. EXTREMITIES: No lower extremity edema. NEUROLOGIC: She is alert and oriented x3. She has been able to come out of bed and walk in the hallway. SIGNIFICANT LABS DURING HOSPITAL ADMISSION: On presentation, her WBC was 23,000, which improved to 7000 at the time of discharge. Hemoglobin is 13.1, platelet count 291. She did have hyponatremia with a sodium of 135 and hypochloremia with a chloride of 97 on admission. These improved to 141 and 1.6 at the time of discharge. Her blood sugar is 105, BUN 7, creatinine 0.7. Her lactate was 1.2 on presentation. Urinalysis was unremarkable. Blood culture did not have any growth. Urine culture did not have any growth. SIGNIFICANT IMAGING: Chest x-ray on admission did not have any acute cardiopulmonary process. Abdomen and pelvic CT showed diverticulitis of the sigmoid colon without free air or abscess. There was severe fatty changes of the liver. HOSPITAL COURSE SUMMARY: Ms. Cano is a 53-year-old lady with a history of diverticulitis and diverticulosis who came in with the chief complaint of lower abdominal pain of about 3 days' duration which did not get better, associated with nausea. Her symptoms sounded like her previous episodes of diverticulitis to her, and so she decided to come to the emergency room. In the emergency room she was found to have significant leukocytosis and tachycardia with a high rate of 112, and CT scan evidence of sigmoid diverticulitis. So, she was given intravenous fluids and antibiotics, and the hospitalist team was consulted for further management. She was kept on a clear liquid diet, intravenous fluids and intravenous antibiotics and monitored, following which she improved. Currently she is able to tolerate her diet without any recurrence of abdominal pain or nausea. She does have some left GI soreness, and she was advised to continue a softer diet and then continue antibiotics, and have outpatient gastroenterology follow up. 25 minutes was spent discharging this patient. All of her questions have been answered. cc: MD JAREK Turner
== END 2019-04-10 13:25 | disposition home or self-care (01) | DRG 872 ==
LOC: ED 17:08 → 4N 22:20 → SUATTDRO 22:20
PROVIDERS: ATTEND Internal Medicine